=== PATIENT | female | born 1955 | race Caucasian/White ===

== ENCOUNTER 2024-01-05 16:12 | Emergency (ER) | payer MEDICARE, OTHER | END 2024-01-05 18:00 | disposition home or self-care (01) | LOC: JP.ED 16:12 | DX: G56.92 Unspecified mononeuropathy of left upper limb (principal); Z90.49 Acquired absence of other specified parts of digestive tract; Z79.899 Other long term (current) drug therapy; Z91.048 Other nonmedicinal substance allergy status | CPT/HCPCS: 72050; 72050-26; 99283 ==

== ENCOUNTER 2025-04-20 09:37 | Day surgery (SDC) | payer MEDICARE, OTHER ==
[2025-04-20] MEDS: Lactated Ringers 1,000 ML IV SCH (10:35)
[2025-04-20] MEDS ORDERED: Propofol 200 MG/20 ML SDV ONE (10:48)
[2025-04-20] MEDS ORDERED: fentaNYL 100 MCG/2 ML SDV ONE (10:48)
== END 2025-04-20 13:30 | disposition home or self-care (01) ==
LOC: JP.SDS 09:37
PROVIDERS: ATTEND Surgery
DX: Z12.11 Encounter for screening for malignant neoplasm of colon (principal); Z86.0100 Personal history of colon polyps, unspecified; N18.9 Chronic kidney disease, unspecified
CPT/HCPCS: 00811; 45380; 88305; J2704; J3010; J7120